=== PATIENT | female | born 1970 | race Two or more races ===

== ENCOUNTER 2019-06-16 13:05 | Emergency (ER) | payer SELFPAY ==
[~2019-06-16] VITALS: Ht 167.6 cm; Wt 79.0 kg
[2019-06-16 13:13] VITALS: BP 156/90
== END 2019-06-16 14:39 | disposition left against medical advice (07) ==
LOC: ER 13:05
DX: Z53.21 Procedure and treatment not carried out due to patient leaving prior to being seen by health care provider (principal)